=== PATIENT | male | born 1940 | race Caucasian/White ===

== ENCOUNTER 2017-04-17 06:15 | Day surgery (SDC) | payer OTHER ==
[~2017-04-17] VITALS: Ht 180.3 cm; Wt 88.9 kg
[~2017-04-17 06:15] MED LIST: ALBUTEROL HFA60 DOSE IN; ASPIRIN EC81 MG; ATROVENT; DEPAKOTE250 MG PO; IPRATROPIUM BR0.02 % IN; KLOR-CON 1010 MEQ PO; LASIX40 MG PO; VITAMIN D-11000 UNIT; [UNRECOGNIZED DRUG - OTHER] PO
--- NOTE | 2017-04-17 06:49 | NUR ---
PATIENT ASSESSMENT AND MED/ALLERGY REVIEW COMPLETE. VITALS STABLE. EKG OBTAINED. CONSENT SIGNED BY PATIENT AND WITNESSED BY RN. IV STARTED IN R FOREARM WITH 1 ATTEMPT. PREOP INSTRUCTIONS DISCUSSED. QUESTIONS ENCOURAGED AND ANSWERED BY RN. WILL CONTINUE TO MONITOR.
--- NOTE | 2017-04-17 08:17 | Provider's Discharge Care Plan ---
Problem, Goal, Plan Problem List 1. STATUS POST EGD WITH SAVORY DILATION UNDER FLUOROSCOPY Goals: Improve disease control, Therapeutic intervention Instructions: Follow up as needed, Take meds as directed, full liquids for 24hr and then advance as tolerated
--- NOTE | 2017-04-17 08:24 | NUR ---
rec'd from OR; SPONT RESP. BEGINS TO ROUSE. HOB ELEVATED 45 DEGREES.
--- NOTE | 2017-04-17 08:28 | NUR ---
AWAKE AND TALKING ABOUT HIS WEEKEND AND THE LAST TIME WE SAW HIM AT THE SUR[facility]ERY [facility] LAST MONDAY.
--- NOTE | 2017-04-17 08:30 | Operative Report ---
Operative Report Date of Surgery: 04/17/17 Preoperate Diagnosis: dysphagia Postoperative Diagnosis: dysphagia Surgeon: Heber Brothers MD Signal Tester Surgeon: none Procedure Performed: Upper GI endoscopy with fluoroscopy savory dilation of distal esophagus and interpretation Anesthesia: Gen. endotracheal Indications: 76-year-old male who in 1985 underwent a Johanny fundoplication. Patient has had postop dysphagia and has had numerous upper GI endoscopies with dilations before. Most of these have been in [place]. He presents with dysphagia once again. FINDINGS: EG junction at 40 cm, dilated to 20 mm. No resistance. Surgical Technique: Patient brought to the operating room placed in the left lateral decubitus position. Patient was administered total intravenous anesthesia.. Once anesthesia had taken affect, the posterior pharynx was sprayed using Cetacaine spray. An Olympus fiberoptic video upper GI endoscope was passed in to the patient's posterior pharynx. The esophagus intubated under direct visualization. The scope passed easily down the esophagus through the EG junction which was located approximately at 40 cm from the dental incisors. The scope passed through the EG junction into the gastric lumen and eventually into the second third portion of duodenum. On withdrawing the scope, the afore mentioned findings were noted. The scope was withdrawn into the gastric lumen and retroflexed. Good view of the cardia, fundus, EG junction from below, and greater and lesser curvature. A floppy tip guidewire was passed through the biopsy channel of the scope into the gastric lumen. Its position was noted on fluoroscopy.. The scope was then completely withdrawn leaving the wire in the gastric lumen. Over the wire. We passed. successive larger savory dilators beginning with 15 to 20 mm, leaving each in place for approximately 3 min under fluoroscopic guidance. Upon completion the savory dilator and the wire were withdrawn as a unit. The endoscope was passed once again to examine the mucosa of the EG junction. The mucosa was intact. The scope was withdrawn. Patient tolerated procedure well. Patient was transferred to the recovery room in stable condition. There were no intraoperative or anesthetic complications.
--- NOTE | 2017-04-17 08:34 | NUR ---
DR. AUSTIN HERE TO SPEAK TO PT RE FINDINGS AND POST OP CARE.
--- NOTE | 2017-04-17 09:32 | NUR ---
PATIENT BACK FROM OR. VITALS STABLE. SLIGHT COUGH, BUT SWALLOWING CLEAR LIQUIDS WITHOUT DIFFICULTY. WILL CONTINUE TO MONITOR
[2017-04-17 09:35] VITALS: BP 124/59
--- NOTE | 2017-04-17 10:04 | DIAGNOSTIC IMAGING REPORT ---
PROCEDURE: XR FLUORO ENDOSCOPE DILATION INDICATION: DYSPHAGIA TECHNIQUE: C-arm fluoroscopy provided to Dr. Brothers for esophageal dilation Fluoroscopy time 2 minutes and 45-second 72.6 mGy). COMPARISON: Barium swallow 03/12/2015 FINDINGS: Fluoroscopic guidance was provided to position the balloon in the distal esophagus and gastroesophageal junction. IMPRESSION: 1. C-arm fluoroscopy for esophageal dilation (performed by Dr. Brothers
--- NOTE | 2017-04-17 10:26 | NUR ---
PATIENT DEPARTED SCU AT 1003. VITALS STABLE. TOLERATING PO FLUIDS WITHOUT DIFFICULTY. IV DISCONTINUED. DISCHARGE INSTRUCTIONS DISCUSSED. QUESTIONS ENCOURAGED AND ANSWERED BY RN. PATIENT DEPARTED WITH SPOUSE, WHO IS HIS RIDE.
== END 2017-04-17 10:03 | disposition home or self-care (01) ==
LOC: OR SRH 06:15 → SCU SRH 06:16 → OR SRH 07:30
PROVIDERS: Specialist
PROC: 0D748ZZ Dilation of Esophagogastric Junction, Via Natural or Artificial Opening Endoscopic (ICD-10-PCS; principal; 2017-04-17 07:30)
PROC: 0D738ZZ Dilation of Lower Esophagus, Via Natural or Artificial Opening Endoscopic (ICD-10-PCS; principal; 2017-04-17 07:30)
DX: R13.19 Other dysphagia (principal); Z98.890 Other specified postprocedural states
CPT/HCPCS: 29229; 29240; 50004; 60001; 70002; 80102; 83526